=== PATIENT | male | born 1990 | race Caucasian/White ===

== ENCOUNTER 2017-12-23 15:52 | Emergency (ER) | payer OTHER ==
[2017-12-23 16:00] VITALS: BP 143/89
--- NOTE | 2017-12-23 16:08 | EDPHY ---
H & P Stated Complaint: L wrist lac Time Seen by Provider: 12/23/17 16:08 HPI/ROS: CHIEF COMPLAINT: Left arm laceration HISTORY OF PRESENT ILLNESS: The patient presents to the ED after he sustained a laceration to his left forearm while using a utility knife. He denies any associated numbness or weakness. The patient reports his tetanus shot is not up -to-date. The patient denies additional injury. He reports normal range of motion of his hand. REVIEW OF SYSTEMS: A comprehensive 10 point review of systems is otherwise negative aside from elements mentioned in the history of present illness. Source: Patient Exam Limitations: No limitations - Personal History Current Tetanus/Diphtheria Vaccine: Yes Current Tetanus Diphtheria and Acellular Pertussis (TDAP): Yes - Medical/Surgical History Hx Asthma: No Hx Chronic Respiratory Disease: No Hx Diabetes: No Hx Cardiac Disease: No Hx Renal Disease: No Hx Cirrhosis: No Hx Alcoholism: No Hx HIV/AIDS: No Hx Splenectomy or Spleen Trauma: No Other PMH: denies - Social History Smoking Status: Never smoked - Physical Exam Exam: General Appearance: Alert, no distress Skin: 2 cm laceration noted to the left mid forearm Extremities: Nontender, full range of motion no clinical evidence of a tendon injury Neurological: No clinical evidence of a neurovascular injury Constitutional: Initial Vital Signs Temperature (C) 36.7 C 12/23/17 15:57 Heart Rate 84 12/23/17 15:57 Respiratory Rate 16 12/23/17 15:57 Blood Pressure 143/89 H 12/23/17 15:57 O2 Sat (%) 98 12/23/17 15:57 O2 Delivery Mode Room Air Allergies/Adverse Reactions: No Known Allergies Allergy (Unverified 12/23/17 15:57) Home Medications: Medication Instructions Recorded NK [No Known Home Meds] 12/23/17 Medical Decision Making Procedures: Procedure: Laceration repair. Verbal consent was obtained from the patient. The 2 cm laceration on the left forearm was anesthetized using lidocaine with epinephrine. The wound was irrigated per protocol, draped and explored to its base with a gloved finger. There were no deep structures involved. No tendon injury was identified. The wound was repaired with 4 0 Ethilon sutures x3. The wound repair was simple. The procedure was performed by myself. Departure - Departure Disposition: Home, Routine, Self-Care Clinical Impression: Forearm laceration Condition: Good Instructions: Care For Your Stitches (DC) Additional Instructions: 1. Return to the ED in 12 days for suture removal. 2. Apply antibiotic ointment twice daily to your sutures. 3. Return to the ED sooner for increasing pain, redness or other concerns. Referrals: NONE *PRIMARY CARE P,. [Primary Care Provider] - As per Instructions
[2017-12-23] MEDS ORDERED: TDAP ADULT 0.5 ML INJ (BOOSTRIX) IM ONE (16:18)
== END 2017-12-23 16:39 | disposition home or self-care (01) ==
PROC: 0HQEXZZ Repair Left Lower Arm Skin, External Approach (ICD-10-PCS; principal; 2017-12-23)
DX: S51.812A Laceration without foreign body of left forearm, initial encounter (principal); Z23 Encounter for immunization; W26.0XXA Contact with knife, initial encounter